=== PATIENT | female | born 1935 | race African-American/Black ===

== ENCOUNTER 2017-02-28 11:15 | Emergency (ER) | payer MEDICARE ==
[2017-02-28] MEDS ORDERED: Ondansetron HCl/PF 4 MG/2 ML Vial ONE (11:34)
[2017-02-28 11:58] LABS: #Lymphocytes 1.6 thou/uL (1.20-3.40); #Monocytes 0.5 thou/uL (0.11-0.59); #Neutrophils 3.5 thou/uL (1.40-6.50); %Basophils 0.6 % (0.0-1.0); %Eosinophils 0.6 % (0.0-10.0); %Lymphocytes 28.9 % (21.0-51.0); %Monocytes 8.6 % (0.0-10.0); Hematocrit 33.8 % (36.0-47.0); Mean Platelet Volume 7.9 fL (7.4-10.4); Red Blood Cell (RBC) Count 3.45 mill/uL (4.20-5.40); White Blood Cell (WBC) Count 5.7 thou/uL (4.8-10.8)
[2017-02-28 12:26] LABS: ALT (SGPT) 13 U/L (8-55); AST (SGOT) 26 U/L (5-34); Alkaline Phosphatase 86 U/L (40-150); Anion Gap 15 mmol/L (10-20); BUN (Urea Nitrogen) 12 mg/dL (9.8-20.1); Bilirubin, Total 0.3 mg/dL (0.2-1.2); Calc. Creatinine Clearance 0 mL/min (70-130); Calcium 8.9 mg/dL (7.8-10.44); Carbon Dioxide 25 mmol/L (23-31); Chloride 100 mmol/L (98-107); Estimated GFR-MDRD 56; Lipase 7 U/L (8-78); Protein, Total 7.6 g/dL (6.0-8.3)
--- NOTE | 2017-02-28 12:30 | CT ---
CONTRAST ENHANCED CT IMAGES OF ABDOMEN AND PELVIS: Date: 02/28/17 HISTORY: 82-year-old with abdominal pain. TECHNIQUE: Contrast enhanced CT images of the abdomen and pelvis obtained after administration of IV contrast. FINDINGS: The lung bases are unremarkable. The liver and spleen are unremarkable. There is diffuse ascites. Nodularly enhancing peritoneal lesions seen throughout the peritoneal cavi ty. These are extensive. I am concerned about possible peritoneal metastasis and malignant ascites. This is not significantly changed since the previous comparison CT from 05/14/16. No evidence of small bowel dilatation seen. No evidence of bowel obstruction seen. Surgical adalberto seen in the colon from previous surgery. No evidence of periaortic lymphadenopathy seen. 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 POS: [facility]
[2017-02-28 13:35] LABS: Bilirubin Negative (Negative); Blood, Urine Trace (Negative); Glucose, Urine (Dipstick) Negative (Negative); Ketone, Urine Negative (Negative); Nitrite Negative (Negative); Protein, Urine (Dipstick) Negative (Neg-Trace); Urobilinogen 0.2 mg/dL (0.2-1.0)
[2017-02-28 13:40] LABS: Bacteria/HPF None Seen HPF (None Seen); Hyaline Casts/LPF 0-3 HYALINE CAST LPF (0-3 Hyaline); RBC/HPF 0-3 HPF (0-3); Squamous Epithelial 0-3 HPF (0-3); WBC/HPF 0-3 HPF (0-3)
[2017-02-28] MEDS ORDERED: ISOVUE-370 76%-LOCM 1 ML ONE (14:25)
== END 2017-02-28 13:58 | disposition home or self-care (01) ==
LOC: ERS 11:15
DX: R18.8 Other ascites (principal); I10 Essential (primary) hypertension; K21.9 Gastro-esophageal reflux disease without esophagitis; Z79.899 Other long term (current) drug therapy
CPT/HCPCS: 74177; 80053; 81003; 81015; 83690; 85025; 93005; 96361; 96374; 96375; J2270; J2405

== ENCOUNTER 2017-03-07 10:24 | Day surgery (SDC) | payer MEDICARE ==
[2017-03-06 14:14] VITALS: BMI 36.2
[~2017-03-07 10:24] MED LIST: FLU VACC TS2017-18 (>65YR) 0.5 ML SYRINGE IM ONE
[2017-03-07 10:53] LABS: PTT 26.6 SEC (22.9-36.1); Prothrombin Time 13.7 SEC (12.0-14.7)
[2017-03-07 12:47] VITALS: BP 128/73; TEMP 98.1
--- NOTE | 2017-03-07 14:06 | ULT ---
SONOGRAPHIC GUIDED PARACENTESIS: Date: 03/07/17 HISTORY: Recurrent ascites. Ovarian cancer with metastatic disease. FINDINGS: After explaining the procedure and answering all questions, sonographic survey of the abdomen shows a moderate amount of free fluid. Sterile technique, buffered local anesthesia, sonographic guidance, and a left lower quadrant anterior approach were used to carefully advance a 19 gauge Yueh needle a nd catheter into the free fluid. The catheter was left to drain a total volume of 2.6 liter serosang uinous liquid. Postprocedure imaging shows minimal residual fluid. Patient tolerated the procedure w ell and was dismissed in good condition. IMPRESSION: Technically successful sonographic guided paracentesis. POS: [facility]
== END 2017-03-07 12:10 | disposition home or self-care (01) ==
LOC: ULT 10:24
PROVIDERS: ATTEND Internal Medicine Hematology & Oncology
DX: R18.8 Other ascites (principal); C56.9 Malignant neoplasm of unspecified ovary; C79.9 Secondary malignant neoplasm of unspecified site; I10 Essential (primary) hypertension; I08.1 Rheumatic disorders of both mitral and tricuspid valves; E78.00 Pure hypercholesterolemia, unspecified; Z79.899 Other long term (current) drug therapy
CPT/HCPCS: 36415; 49083; 85610; 85730

== ENCOUNTER 2017-03-28 07:38 | Day surgery (SDC) | payer MEDICARE ==
[2017-03-27 14:41] VITALS: BMI 36.6
[2017-03-28 09:12] VITALS: BP 142/83; TEMP 97.9
--- NOTE | 2017-03-28 10:01 | ULT ---
ULTRASOUND GUIDED PARACENTESIS THERAPEUTIC: Date: 03-28-17 History: Malignant ascites from ovarian cancer. Technique: Four quadrant ultrasound survey of the abdominal cavity. Left lower quadrant selected. Signed inform ed consent obtained. Skin overlying left lower quadrant prepped and draped in the usual sterile fash ion. 25 gauge needle used to apply buffered Lidocaine superficially. Because of the thickness of the subcutaneous adipose tissues, a 22 gauge spinal needle was used to apply buffered Lidocaine to the abdominal wall and peritoneum, under ultrasound guidance. 5 [place] Yueh catheter with stylet advance d in tandem with the spinal needle into the pocket of free fluid in the left lower quadrant. Spinal needle and stylet removed. Yueh catheter connected to a series of evacuated bottles via plastic tubi ng. After drainage, the Yueh catheter was removed. Patient tolerated the procedure well. No complica tions. FINDINGS: Moderate volume of ascites prior to procedure. Spinal needle distal tip visualized within the pocket of free fluid in the left lower quadrant. A total of 2700 ml of hemorrhagic peritoneal fluid was dr ained. Post procedure single image of left lower quadrant demonstrates a small amount of residual fl uid. IMPRESSION: 1. Successful therapeutic paracentesis of malignant, hemorrhagic ascites. 2. A total of 2700 ml of free intraperitoneal hemorrhagic fluid drained. POS: [facility]
== END 2017-03-28 08:50 | disposition home or self-care (01) ==
LOC: ULT 07:38
PROVIDERS: ATTEND Internal Medicine Hematology & Oncology
PROC: 0W9G3ZX Drainage of Peritoneal Cavity, Percutaneous Approach, Diagnostic (ICD-10-PCS; principal; 2017-03-28)
DX: R18.8 Other ascites (principal); C56.1 Malignant neoplasm of right ovary; C18.2 Malignant neoplasm of ascending colon; C78.6 Secondary malignant neoplasm of retroperitoneum and peritoneum
CPT/HCPCS: 49083

== ENCOUNTER 2017-04-18 09:27 | Day surgery (SDC) | payer MEDICARE ==
[2017-04-17 15:08] VITALS: BMI 39.1
[2017-04-18 09:56] LABS: PTT 24.6 SEC (22.9-36.1); Prothrombin Time 14.1 SEC (12.0-14.7)
[2017-04-18 09:58] LABS: Hematocrit 32.3 % (36.0-47.0); Mean Platelet Volume 7.4 fL (7.4-10.4); Red Blood Cell (RBC) Count 3.45 mill/uL (4.20-5.40); White Blood Cell (WBC) Count 6.3 thou/uL (4.8-10.8)
[2017-04-18 09:59] LABS: #Monocytes 0.7 thou/uL (0.11-0.59); #Neutrophils 4.5 thou/uL (1.40-6.50); %Basophils 0.5 % (0.0-1.0); %Eosinophils 0.3 % (0.0-10.0); %Lymphocytes 16.1 % (21.0-51.0); %Monocytes 11.5 % (0.0-10.0)
[2017-04-18 11:52] VITALS: BP 127/72; TEMP 98
--- NOTE | 2017-04-18 12:31 | ULT ---
ULTRASOUND GUIDED PARACENTESIS: CLINICAL INDICATION: Ascites. PROCEDURE: After informed consent had been obtained, the patient was escorted to the ultrasound suite and placed in a supine position. The abdomen was imaged which revealed adequate ascites for the procedure. Th e skin of the abdomen was then prepped and draped in the standard sterile fashion and the skin surfac e, subcutaneous tissues, and peritoneal lining of the abdomen were anesthetized with 1% Lidocaine buf fered with sodium bicarbonate. A right lower quadrant approach was selected. A small skin incision was made at the site of topical anesthesia. Subsequently, under real-time ultrasound guidance a CompBlue catheter was advanced through the incision site into the peritoneal cavity. Ascites was present at the catheter hub. The catheter was then secured to vacuum sealed sterile containers, via sterile tub ing and subsequently 2.2 L of sanguinous ascites was drained from the patient. The patient was then removed from the patient. The patient tolerated the procedure well without evidence of complication. Postprocedure imaging revealed no complication and interval reduction in volume of ascites. The pa tient was monitored by a radiology nurse and was stable in condition. IMPRESSION: 1. Technically successful ultrasound-guided paracentesis, as above. 2. Post-drainage imaging reveals a small volume of residual ascites. POS: [facility]
== END 2017-04-18 11:28 | disposition home or self-care (01) ==
LOC: ULT 09:27
PROVIDERS: ATTEND Internal Medicine Hematology & Oncology
PROC: 0W9G3ZX Drainage of Peritoneal Cavity, Percutaneous Approach, Diagnostic (ICD-10-PCS; principal; 2017-04-18)
DX: R18.8 Other ascites (principal); C56.1 Malignant neoplasm of right ovary; K63.89 Other specified diseases of intestine; Z90.49 Acquired absence of other specified parts of digestive tract; Z98.890 Other specified postprocedural states
CPT/HCPCS: 36415; 49083; 85025; 85610; 85730